=== PATIENT | male | born 2000 | race Caucasian/White ===

== ENCOUNTER 2020-03-03 15:07 | Emergency (ER) | payer OTHER ==
[~2020-03-03] VITALS: Ht 170.2 cm; Wt 49.9 kg
[~2020-03-03 15:07] MED LIST: ALBUTEROL INHAL17 GM; AMOXICILLI400 MG/5 M PO; CEPHALEXIN 500500 M3 PO; CIPROFLOXIN HC2.5 M1 OTIC; FLONASE
[2020-03-03 16:22] VITALS: BP 110/72
== END 2020-03-03 16:22 | disposition home or self-care (01) ==
LOC: M.ERS 15:07
DX: S60.445A External constriction of left ring finger, initial encounter (principal); W49.04XA Ring or other jewelry causing external constriction, initial encounter; Y93.89 Activity, other specified; Y92.89 Other specified places as the place of occurrence of the external cause; Y99.8 Other external cause status

== ENCOUNTER 2021-05-21 20:07 | Emergency (ER) | payer OTHER ==
[~2021-05-21] VITALS: Ht 177.8 cm; Wt 54.4 kg
[2021-05-21] MEDS ORDERED: NAPROSYN500 MG PO (21:37)
[2021-05-21] MEDS ORDERED: MEDROLDOSEPACK PO (21:37)
[2021-05-21 21:54] VITALS: BP 120/87
== END 2021-05-21 21:54 | disposition home or self-care (01) ==
LOC: M.ERS 20:07
DX: G56.02 Carpal tunnel syndrome, left upper limb (principal)